=== PATIENT | female | born 1975 | race Caucasian/White ===

== ENCOUNTER → 2018-12-13 10:44 | Outpatient (CLI) | payer OTHER, SELFPAY ==
--- NOTE | 2018-12-13 | DI.US.S_ITS ---
PROCEDURE: US PELVIC COMPLETE INDICATIONS: PELVIC PAIN TECHNIQUE: Real-time scanning was performed of the pelvic organs, with image documentation. Additional endovaginal scanning was necessary due to incomplete visualization of the adnexal and endometrial structures by transabdominal scanning. COMPARISON: None. FINDINGS: Transabdominal scanning: Limited scanning through the kidneys shows no hydronephrosis. No pathologic free abdominal or pelvic fluid. Endovaginal scanning: Uterus: Uterus is normal in size at 8.5 x 4.4 x 3.3 cm. The endometrium measures 4.8 mm in combined thickness. Intrauterine device in expected position. Small endometrial notch echogenic foci present likely related to retained blood products. Ovaries: Supple, unilocular right ovarian cyst measuring 2.9 x 2.8 x 2.5 cm. Small regressing physiologic left ovarian cyst measuring roughly 1.0 cm. IMPRESSION: 1. Intrauterine device in expected position. 2. Simple right ovarian cyst and regressing left physiologic cyst measuring roughly 1.0 cm. 3. No source for pelvic pain identified. Dictated by: Simone Queen [facility] Interpreted: Tylor Tesfaye MD on 12/13/2018 at 13:00 Approved by: Tylor Tesfaye M.D. on 12/13/2018 at 17:01
--- NOTE | 2018-12-13 | DI.MG.S_ITS ---
BILATERAL DIGITAL SCREENING MAMMOGRAM 3D/2D WITH CAD: 12/13/2018 CLINICAL: Routine screening. Comparison is made to exam dated: 01/12/2015 [facility]. There are scattered fibroglandular elements in both breasts. Current study was also evaluated with a Computer Aided Detection (CAD) system. No significant masses, calcifications, or other findings are seen in either breast. There has been no significant interval change. IMPRESSION: NEGATIVE There is no mammographic evidence of malignancy. A 1 year screening mammogram is recommended. This exam was interpreted at Station ID: [id number]. NOTE: For mammograms, a report in lay terms will be sent to the patient. Approximately 15% of breast malignancies will not be visualized mammographically. In the management of a palpable breast mass, a negative mammogram must not discourage biopsy of a clinically suspicious lesion. Electronically Signed By: Hu zamora/andreina:12/13/2018 18:30:16 letter sent: Normal Exam ACR BI-RADS Category 1: Negative 3341F
== END ==
PROVIDERS: PCP Family Medicine; Visit Provider Family Medicine
DX: Z12.31 Encounter for screening mammogram for malignant neoplasm of breast (principal); R10.2 Pelvic and perineal pain; N83.291 Other ovarian cyst, right side; N83.292 Other ovarian cyst, left side; Z97.5 Presence of (intrauterine) contraceptive device
CPT/HCPCS: 76830; 76856; 77063; 77067

== ENCOUNTER → 2018-12-18 11:45 | Outpatient (CLI) | payer OTHER, SELFPAY ==
--- NOTE | 2018-12-18 | DI.RAD.S_ITS ---
PROCEDURE: XR KNEE RT 3V INDICATIONS: R KNEE PAIN TECHNIQUE: 3 views of the knee were acquired. COMPARISON: None. FINDINGS: Bones: No fractures or dislocations. No suspicious bony lesions. Scattered degenerative subchondral sclerosis and spurring. Minimal narrowing of the medial joint space Soft tissues: No joint effusion. No suspicious soft tissue calcifications. IMPRESSION: Mild right knee joint degeneration. Dictated by: Henrry Nuñez M.D. on 12/18/2018 at 12:54 Approved by: Henrry Nuñez M.D. on 12/18/2018 at 12:56
== END ==
PROVIDERS: PCP Student in an Organized Health Care Education/Training Program; Visit Provider Student in an Organized Health Care Education/Training Program
DX: M25.561 Pain in right knee (principal); M17.11 Unilateral primary osteoarthritis, right knee
CPT/HCPCS: 73562

== ENCOUNTER → 2020-03-07 10:41 | Outpatient (CLI) | payer OTHER, SELFPAY ==
--- NOTE | 2020-03-07 | DI.MG.S_ITS ---
BILATERAL DIGITAL SCREENING MAMMOGRAM 3D/2D WITH CAD: 03/07/2020 CLINICAL: Routine screening. Comparison is made to exams dated: 12/13/2018 mammogram and 01/12/2015 mammogram - [facility]. There are scattered fibroglandular elements in both breasts. Current study was also evaluated with a Computer Aided Detection (CAD) system. No significant masses, calcifications, or other findings are seen in either breast. There has been no significant interval change. IMPRESSION: NEGATIVE There is no mammographic evidence of malignancy. A 1 year screening mammogram is recommended. This exam was interpreted at Station ID: [id number]. NOTE: For mammograms, a report in lay terms will be sent to the patient. Approximately 15% of breast malignancies will not be visualized mammographically. In the management of a palpable breast mass, a negative mammogram must not discourage biopsy of a clinically suspicious lesion. Electronically Signed By: Aditya meredith/andreina:03/09/2020 07:51:02 letter sent: Normal Exam ACR BI-RADS Category 1: Negative 3341F
== END ==
PROVIDERS: PCP Student in an Organized Health Care Education/Training Program; Referring Provider Student in an Organized Health Care Education/Training Program; Visit Provider Student in an Organized Health Care Education/Training Program
DX: Z12.31 Encounter for screening mammogram for malignant neoplasm of breast (principal)
CPT/HCPCS: 77063; 77067

== ENCOUNTER → 2021-03-17 10:41 | Outpatient (CLI) | payer OTHER, SELFPAY ==
--- NOTE | 2021-03-17 | DI.MG.S_ITS ---
BILATERAL DIGITAL SCREENING MAMMOGRAM 3D/2D WITH CAD: 03/17/2021 CLINICAL: Routine screening. Comparison is made to exams dated: 03/07/2020 mammogram, 12/13/2018 mammogram, and 01/12/2015 mammogram - [facility]. There are scattered fibroglandular elements in both breasts. Current study was also evaluated with a Computer Aided Detection (CAD) system. No significant masses, calcifications, or other findings are seen in either breast. There has been no significant interval change. IMPRESSION: NEGATIVE There is no mammographic evidence of malignancy. A 1 year screening mammogram is recommended. This exam was interpreted at Station ID: [id number]. NOTE: For mammograms, a report in lay terms will be sent to the patient. Approximately 15% of breast malignancies will not be visualized mammographically. In the management of a palpable breast mass, a negative mammogram must not discourage biopsy of a clinically suspicious lesion. Electronically Signed By: Jareth Juan acr/andreina:03/17/2021 11:52:20 letter sent: Normal Exam ACR BI-RADS Category 1: Negative 3341F
== END ==
PROVIDERS: PCP Student in an Organized Health Care Education/Training Program; Referring Provider Student in an Organized Health Care Education/Training Program; Visit Provider Student in an Organized Health Care Education/Training Program
DX: Z12.31 Encounter for screening mammogram for malignant neoplasm of breast (principal)
CPT/HCPCS: 77063; 77067

== ENCOUNTER → 2021-04-15 12:14 | Outpatient (CLI) | payer OTHER, SELFPAY ==
--- NOTE | 2021-04-15 12:17 | DI.RAD.S_ITS ---
PROCEDURE: XR SHOULDER RT MIN 2V INDICATIONS: Right arm pain TECHNIQUE: 3 views of the shoulder were acquired. COMPARISON: None. FINDINGS: Bones: No fractures or dislocations. No suspicious bony lesions. Visualized ribs appear intact. Soft tissues: No suspicious soft tissue calcifications. IMPRESSION: Unremarkable right shoulder radiographs Approved by: Garcia Muñoz M.D. on 04/15/2021 at 14:45
--- NOTE | 2021-04-15 12:17 | DI.RAD.S_ITS ---
PROCEDURE: XR CLAVICLE RT INDICATIONS: Right arm pain TECHNIQUE: 2 views of the clavicle were acquired. COMPARISON: None. FINDINGS: Bones: No fractures or dislocations. No suspicious bony lesions. Soft tissues: No suspicious soft tissue calcifications. IMPRESSION: Unremarkable right clavicular radiographs Approved by: Garcia Muñoz M.D. on 04/15/2021 at 14:44
--- NOTE | 2021-04-15 12:17 | DI.RAD.S_ITS ---
PROCEDURE: XR CERVICAL SPINE 2V OR 3V INDICATIONS: Right arm pain TECHNIQUE: 3 view(s) of the cervical spine were acquired. COMPARISON: None. FINDINGS: Bones: No fractures or dislocations to the T1 level. The lateral masses of C1 appear intact on the odontoid view. No suspicious bony lesions. Reversal normal cervical lordosis present. Soft tissues: No prevertebral soft tissue swelling. IMPRESSION: Reversal of the normal cervical lordosis may related to patient positioning or muscle spasm. Approved by: Garcia Muñoz M.D. on 04/15/2021 at 14:43
== END ==
PROVIDERS: PCP Student in an Organized Health Care Education/Training Program; Referring Provider Student in an Organized Health Care Education/Training Program; Visit Provider Student in an Organized Health Care Education/Training Program
DX: M79.601 Pain in right arm
CPT/HCPCS: 72040; 73000; 73030

== ENCOUNTER → 2021-05-20 09:38 | Outpatient (CLI) | payer OTHER, SELFPAY ==
--- NOTE | 2021-05-20 09:40 | DI.US.S_ITS ---
PROCEDURE: US PELVIC COMPLETE INDICATIONS: PAIN TECHNIQUE: Real-time scanning was performed of the pelvic organs, with image documentation. Additional endovaginal scanning was necessary due to incomplete visualization of the adnexal and endometrial structures by transabdominal scanning. COMPARISON: [facility], , US PELVIC COMPLETE, 12/13/2018, 11:44. FINDINGS: Uterus: Uterus is anteverted and normal in size at 7.5 x 3.7 x 4.4 cm. The myometrium is homogeneous. The endometrium measures 5 mm combined thickness. The IUD is seen at its expected location. Ovaries: The right ovary measures 2.6 x 1.7 x 1.6 cm. The left ovary measures 3 x 1.2 x 2.3 cm. The ovaries have a normal sonographic appearance. No adnexal masses are seen. Other: No pathologic free abdominal or pelvic fluid. IMPRESSION: Unremarkable pelvic ultrasound, with a normally placed IUD. We strive to produce accurate, complete, and clear reports of imaging services. To assist us in improving patient care, this report was composed using standard report templates and voice recognition software. Therefore, it may contain abnormal punctuation, insertions and/or omissions. Occasional wrong-word or sound-alike substitutions may occur. Though we review the report and make efforts to correct it, we do recommend that the report be read carefully in proper context to recognize any text inaccuracies. Dictated by: Bruno Zheng M.D. on 05/20/2021 at 10:49 Approved by: Bruno Zheng M.D. on 05/20/2021 at 10:50
== END ==
PROVIDERS: PCP Student in an Organized Health Care Education/Training Program; Referring Provider Student in an Organized Health Care Education/Training Program; Visit Provider Student in an Organized Health Care Education/Training Program
DX: R10.30 Lower abdominal pain, unspecified (principal); Z97.5 Presence of (intrauterine) contraceptive device
CPT/HCPCS: 76830; 76856

== ENCOUNTER → 2021-08-05 09:41 | Outpatient (CLI) | payer OTHER, SELFPAY ==
--- NOTE | 2021-08-05 09:41 | DI.RAD.S_ITS ---
PROCEDURE: XR FOOT RT MIN 3V INDICATIONS: right foot great toe swelling pain TECHNIQUE: 3 views of the foot were acquired. COMPARISON: None. FINDINGS: Bones: No fractures or dislocations. No suspicious bony lesions. Mild hallux valgus deformity. No osseous erosive changes or periosteal reaction. Soft tissues: No tibiotalar joint effusion. Achilles tendon appears normal. No soft tissue gas. Soft tissue swelling noted adjacent to the 1st MTP joint. IMPRESSION: 1. No jose m evidence of osteomyelitis. Plain film radiographs can be insensitive to osteomyelitis during the initial 15 days of the disease process. If there is clinical concern for osteomyelitis, then three-phase nuclear medicine bone scan or MRI should be considered for further evaluation. 2. Soft tissue swelling adjacent to the 1st MTP joint. Finding is nonspecific but differential includes infection, trauma or inflammatory arthritis. Dictated by: Holly Morrow MD, PhD on 08/05/2021 at 15:01 Approved by: Holly Morrow MD, PhD on 08/05/2021 at 15:02
== END ==
PROVIDERS: PCP Student in an Organized Health Care Education/Training Program; Referring Provider Nurse Practitioner Family; Visit Provider Nurse Practitioner Family
DX: M79.671 Pain in right foot (principal); M79.89 Other specified soft tissue disorders
CPT/HCPCS: 73630

== ENCOUNTER → 2021-12-29 10:57 | Outpatient (CLI) | payer OTHER, SELFPAY ==
[2021-12-29 13:34] LABS: COVID19 -Nasal RAPID Negative (Negative)
== END ==
PROVIDERS: PCP Student in an Organized Health Care Education/Training Program; Visit Provider Surgery
DX: Z20.822 Contact with and (suspected) exposure to COVID-19 (principal); Z01.812 Encounter for preprocedural laboratory examination
CPT/HCPCS: 87635; C9803

== ENCOUNTER 2021-12-30 11:24 | Day surgery (SDC) | payer OTHER, SELFPAY ==
[2021-12-30] VITALS (8 sets, daily range): BP systolic 86–139; BP diastolic 43–84; PULSE 60–74; RESP 15–20; TEMP 36–36.2; O2SAT 96–100; BMI 37.1
--- NOTE | 2021-12-30 | PATH_ITS ---
[facility] Accession Number: [id number] . 01 Material submitted: . colon - SIGMOID COLON POLYP . 01 Diagnosis: Sigmoid Colon, Polyp, Biopsy: Hyperplastic polyp. JN 12/31/2021 1220 Local . 01 Electronically signed: . Lorie Almazan MD, Pathologist NPI- [id number] . 01 Gross description: . SIGMOID COLON POLYP: Received in formalin is 1 fragment(s) of pritchard, soft tissue measuring 0.4 x 0.3 x 0.2 cm submitted entirely in 1 cassette(s) /QBJ 12/31/2021 0254 Local . 01 Pathologist provided ICD-10: K63.5 . 01 CPT . 517001 Specimen Comment: A courtesy copy of this report has been sent to [phone] Performed at: 01 [facility] [address] [place] [address] [id number] MD Justice Vega MD Phone: [phone]
[2021-12-30] MEDS: LACTATED RINGERS 1,000 ML 150 ML IV (11:59)
--- NOTE | 2021-12-30 12:20 | PM.HP.1 ---
History of Present Illness History of Present Illness Date Patient Seen: 12/30/21 Time Patient Seen: 12:20 Chief complaint: SDC Narrative: Sam is a 46-year-old woman who is here for a colonoscopy for colon cancer screening. She has no known family history of colon cancer but she is adopted so she does not know much about her extended family. Patient History Medical History (Updated 12/30/21 @ 12:21 by Fausto Arreola MD) Abnormal Pap smear of cervix (~1991) Arm pain (~2018) Human papilloma virus (~1991) Hypertension (~2012) Ovarian cyst (~2019) Precancerous lesion (~2017) Shoulder pain (~2018) Surgical History (Updated 04/14/21 @ 22:10 by Mary Jane Sheriff) Anesthesia History of lobectomy of thyroid (~1993) Family & Social History Family History (Updated 04/14/21 @ 22:11 by Mary Jane Sheriff) Father History of heart disease Social History: household members none Tobacco & Substance use: Smoking Status Former smoker alcohol intake current alcohol intake frequency holiday/special occasion Substance Use Type does not use Meds Home Medications and Allergies Home Medications Medication Instructions Recorded Confirmed Type levonorgestrel 20 mcg/24 hours (7 intrauterine 04/15/21 08/16/21 History yrs) 52 mg intrauterine device (Mirena) syringe with needle, safety 3 mL 04/15/21 08/16/21 History 22 gauge x 1 1/2 (BD Eclipse Luer-Lisa) hydrochlorothiazide 25 mg tablet 25 mg PO DAILY #90 tabs 09/09/21 Rx cyanocobalamin (vitamin B-12) 1,000 mcg IM QMONTH #1 mL 11/08/21 12/30/21 Rx 1,000 mcg/mL injection solution metoprolol succinate 50 mg 50 mg PO BID #180 tabs 12/07/21 12/30/21 Rx tablet,extended release 24 hr Allergies Allergy/AdvReac Type Severity Reaction Status Date / Time latex [LATEX] Allergy Unknown Verified 12/30/21 11:44 tetracycline [TETRACYCLINE] Allergy Unknown Verified 12/30/21 11:44 lisinopril AdvReac Mild Cough Verified 12/30/21 11:44 Exam Vital Signs (past 8 hours): - 12/30/21 11:47 Temperature 97.2 F L Pulse Rate 70 Respiratory Rate 20 Blood Pressure 139/83 Pulse Oximetry 100 Oxygen Delivery Method Room Air Oxygen Delivery Method Room Air Const General: No acute distress Resp Effort & Inspection: normal respiratory effort Assessment & Plan Assessment and plan (1) Colon cancer screening: Status: Acute Plan We reviewed the risks and benefits of colonoscopy and she would like to proceed. Time Spent With Patient Critical Care time: I spent a total of [] minutes of critical care time on this patient's care today; this time is exclusive of procedural time.
[2021-12-30] MEDS: MIDAZOLAM 5 MG/5 ML VIAL 10 MG IV (12:49)
[2021-12-30] MEDS: fentaNYL 250 MCG/5 ML INJ IV (12:49)
--- NOTE | 2021-12-30 13:09 | PM.OP.COLON ---
Operative Date/Time/Diagnoses Date of procedure: 12/30/21 Time of procedure: 13:09 Pre-op diagnosis: Colon cancer screening Post-op diagnosis: same Procedure & Clinicians Study performed: Colonoscopy Same procedure as scheduled: Yes Surgeon: Fausto Arreola Procedure Notes Procedure in detail: Surgeon: Fausto Arreola MD Procedure: The patient was brought to the endoscopy suite, placed in left lateral decubitus position. The patient was connected to monitoring devices. A time-out was performed. Sedation was administered. Once the patient was adequately sedated, a digital rectal exam was performed and was normal. The scope was then inserted and advanced to the cecum where the appendiceal orifice was identified and photographed. The scope was then slowly withdrawn over greater than 6 minutes. The mucosa was thoroughly inspected. There was 1 small polyp in the distal sigmoid colon removed with cold forceps. The scope was retroflexed in the rectum. No other abnormalities were noted in the rectum. The scope was straightened and removed. The patient was awakened and brought to recovery. Versed: 10 mg Fentanyl: 250 mcg EBL: 2 mL Findings: 1 small polyp in the distal sigmoid colon Scope withdrawal time: 10 Sedation minutes: 39 Post-procedure Recommendations: Will call with biopsy results Disposition: PACU
--- NOTE | 2021-12-30 13:46 | SUR.PHASEII ---
Pt A&Ox4, denies any distress, VSS and ready to discharge home. Discharge instructions reviewed with patient and time allowed for questions. Handoff to KEEGAN Pratt who will remove IV and transport pt to ER entrance.
== END 2021-12-30 14:00 | disposition home or self-care (01) ==
PROVIDERS: PCP Student in an Organized Health Care Education/Training Program; Referring Provider Surgery; Visit Provider Surgery
PROC: 0DJD8ZZ Inspection of Lower Intestinal Tract, Via Natural or Artificial Opening Endoscopic (ICD-10-PCS; CPT 45378; principal; 2021-12-30 12:30)
DX: Z12.11 Encounter for screening for malignant neoplasm of colon (principal); K63.5 Polyp of colon; I10 Essential (primary) hypertension; Z87.891 Personal history of nicotine dependence
CPT/HCPCS: 45380; 99152; 99153; J2250; J3010

== ENCOUNTER → 2022-06-15 11:07 | Outpatient (CLI) | payer OTHER, SELFPAY ==
[2022-06-15 12:18] LABS: BUN Creatinine Ratio 16.2 (6-22); Blood Urea Nitrogen 12 mg/dL (7-17); Calcium 9.1 mg/dL (8.4-10.2); Carbon Dioxide 30 mmol/L (22-32); Chloride 100 mmol/L (98-107); Estimated Glomerular Filt Rate > 60 mL/min (>60); Glucose 110 mg/dL (70-100); HEMOLYSIS < 15 (0-50); Potassium 4.1 mmol/L (3.4-5.1); Sodium 139 mmol/L (137-145); Uric Acid 6.5 mg/dL (2.5-6.2)
[2022-06-15 13:06] LABS: Vitamin B12 799 pg/mL (239-931)
[2022-06-16 17:29] LABS: HIV 1 & 2 Ab/Ag 4th Gen Combo NEGATIVE (NEGATIVE); Hep C Virus Ab w/Reflex Quant NEGATIVE s/c (NEGATIVE)
== END ==
PROVIDERS: PCP Student in an Organized Health Care Education/Training Program; Referring Provider Student in an Organized Health Care Education/Training Program; Visit Provider Student in an Organized Health Care Education/Training Program
DX: Z11.4 Encounter for screening for human immunodeficiency virus [HIV] (principal); I10 Essential (primary) hypertension; E53.8 Deficiency of other specified B group vitamins; Z11.59 Encounter for screening for other viral diseases; M19.079 Primary osteoarthritis, unspecified ankle and foot
CPT/HCPCS: 36415; 80048; 82607; 84550; 86803; 87389

== ENCOUNTER → 2022-07-15 08:19 | Outpatient (CLI) | payer OTHER, SELFPAY ==
--- NOTE | 2022-07-15 08:20 | DI.MG.S_ITS ---
BILATERAL DIGITAL SCREENING MAMMOGRAM 3D/2D WITH CAD: 07/15/2022 CLINICAL: Routine screening. Comparison is made to exams dated: 03/17/2021 mammogram, 03/07/2020 mammogram, and 12/13/2018 mammogram - [facility]. There are scattered areas of fibroglandular density in both breasts (category b / 25%-50% glandular tissue). Current study was also evaluated with a Computer Aided Detection (CAD) system. No significant masses, calcifications, or other findings are seen in either breast. There has been no significant interval change. IMPRESSION: NEGATIVE There is no mammographic evidence of malignancy. A 1 year screening mammogram is recommended. Based on the Tyrer Cuzick model (a risk assessment model) the patient's lifetime risk is 6.5% and her 10 year risk is 1.3%. According to the ACR, ACS, and NCCN guidelines, an annual breast MRI exam along with mammogram is recommended if the patient's lifetime risk is 20% or greater. This exam was interpreted at Station ID: [id number]. NOTE: For mammograms, a report in lay terms will be sent to the patient. Approximately 15% of breast malignancies will not be visualized mammographically. In the management of a palpable breast mass, a negative mammogram must not discourage biopsy of a clinically suspicious lesion. Electronically Signed By: Jareth hughes/andreina:07/18/2022 08:05:50 letter sent: Normal Exam ACR BI-RADS Category 1: Negative 3341F
== END ==
PROVIDERS: PCP Student in an Organized Health Care Education/Training Program; Referring Provider Student in an Organized Health Care Education/Training Program; Visit Provider Student in an Organized Health Care Education/Training Program
DX: Z12.31 Encounter for screening mammogram for malignant neoplasm of breast (principal)
CPT/HCPCS: 77063; 77067

== ENCOUNTER → 2022-07-18 10:55 | Outpatient (CLI) | payer OTHER, SELFPAY ==
[2022-07-18 11:51] LABS: Uric Acid 6.8 mg/dL (2.5-6.2)
== END ==
PROVIDERS: PCP Student in an Organized Health Care Education/Training Program; Referring Provider Student in an Organized Health Care Education/Training Program; Visit Provider Student in an Organized Health Care Education/Training Program
DX: M19.079 Primary osteoarthritis, unspecified ankle and foot (principal)
CPT/HCPCS: 36415; 84550

== ENCOUNTER → 2023-03-09 15:20 | Outpatient (CLI) | payer OTHER, SELFPAY | PROVIDERS: PCP Family Medicine; Visit Provider Family Medicine | DX: R30.0 Dysuria (principal) | CPT/HCPCS: 87086 ==

== ENCOUNTER → 2023-07-07 10:41 | Outpatient (CLI) | payer OTHER, SELFPAY ==
[2023-07-07 11:19] LABS: Add Manual Diff / Slide Review NO; Basophils Absolute Auto 0 /uL (0-100); Basophils Percent Auto 0.5 % (0-2); Eosinophils Absolute Auto 200 /uL (0-450); Eosinophils Percent Auto 2.2 % (2-4); Hematocrit 38.3 % (36-46); Hemoglobin 13.1 g/dL (12.0-16.0); Lymphocytes Absolute Auto 1700 /uL (1100-4500); Lymphocytes Percent Auto 22.7 % (25-40); Mean Corpuscular HGB Conc 34.2 % (30-36); Mean Corpuscular Hemoglobin 31.3 PG (26-34); Mean Corpuscular Volume 91.4 fL (80-100); Monocytes Absolute Auto 400 /uL (0-900); Monocytes Percent Auto 5.7 % (3-14); Neutrophils Absolute Auto 5200 /uL (1500-7000); Neutrophils Percent Auto 68.9 % (50-75); Platelet Count 226 X10^3/uL (150-400); Red Blood Cell Count 4.19 X10^6/uL (4.0-5.2); Red Cell Distribution Width 13.6 % (11.6-14.8); White Blood Cell Count 7.6 X10^3/uL (4.5-11.0)
[2023-07-07 11:30] LABS: HEMOLYSIS < 15 (0-50); Iron 96 ug/dL (37-170)
[2023-07-07 11:34] LABS: Alanine Aminotransferase 24 IU/L (<35); Albumin 4.1 g/dL (3.5-5.0); Albumin Globulin Ratio 1.5 (1.0-2.8); Alkaline Phosphatase 75 U/L (38-126); Aspartate Aminotransferase 24 IU/L (14-36); BUN Creatinine Ratio 8.6 (6-22); Bilirubin Total 0.7 mg/dL (0.2-1.3); Blood Urea Nitrogen 6 mg/dL (7-17); Calcium 9.6 mg/dL (8.4-10.2); Carbon Dioxide 29 mmol/L (22-32); Chloride 99 mmol/L (98-107); Estimated Glomerular Filt Rate > 60 mL/min (>60); Globulin 2.8 g/dL (1.7-4.1); Glucose 119 mg/dL (70-100); HEMOLYSIS < 15 (0-50); Potassium 3.8 mmol/L (3.4-5.1); Sodium 135 mmol/L (137-145); Total Protein 6.9 g/dL (6.3-8.2); Uric Acid 4.7 mg/dL (2.5-6.2)
[2023-07-07 11:41] LABS: Percent Iron Saturation 32 % (15-50); Total Iron Binding Capacity 300 ug/dL (265-497); Transferrin 255 mg/dL (206-381)
[2023-07-07 12:20] LABS: Vitamin B12 684 pg/mL (239-931)
== END ==
LOC: LAB 10:42
PROVIDERS: PCP Family Medicine; Referring Provider Family Medicine; Visit Provider Family Medicine
DX: M10.9 Gout, unspecified (principal); E53.8 Deficiency of other specified B group vitamins; I10 Essential (primary) hypertension
CPT/HCPCS: 36415; 80053; 82607; 83540; 83550; 84550; 85025

== ENCOUNTER → 2023-09-04 13:58 | Outpatient (CLI) | payer OTHER, SELFPAY ==
--- NOTE | 2023-09-04 13:58 | DI.MG.S_ITS ---
BILATERAL DIGITAL SCREENING MAMMOGRAM 3D/2D WITH CAD: 09/04/2023 CLINICAL: Routine screening. Comparison is made to exams dated: 07/15/2022 mammogram, 03/17/2021 mammogram, 12/13/2018 mammogram, and 01/12/2015 mammogram - [facility]. There are scattered areas of fibroglandular density in both breasts (category b / 25%-50% glandular tissue). Current study was also evaluated with a Computer Aided Detection (CAD) system. No significant masses, calcifications, or other findings are seen in either breast. There has been no significant interval change. IMPRESSION: NEGATIVE There is no mammographic evidence of malignancy. A 1 year screening mammogram is recommended. Based on the Tyrer Cuzick model (a risk assessment model) the patient's lifetime risk is 6.4% and her 10 year risk is 1.3%. According to the ACR, ACS, and NCCN guidelines, an annual breast MRI exam along with mammogram is recommended if the patient's lifetime risk is 20% or greater. This exam was interpreted at Station ID: [id number]. NOTE: For mammograms, a report in lay terms will be sent to the patient. Approximately 15% of breast malignancies will not be visualized mammographically. In the management of a palpable breast mass, a negative mammogram must not discourage biopsy of a clinically suspicious lesion. Electronically Signed By: Fidel leavitt/andreina:09/04/2023 16:28:54 letter sent: Normal Exam ACR BI-RADS Category 1: Negative 3341F
== END ==
LOC: MAMMO 13:58
PROVIDERS: PCP Family Medicine; Referring Provider Family Medicine; Visit Provider Family Medicine
DX: Z12.31 Encounter for screening mammogram for malignant neoplasm of breast (principal); R92.323 Mammographic fibroglandular density, bilateral breasts
CPT/HCPCS: 77063; 77067

== ENCOUNTER → 2024-05-03 13:34 | Outpatient (CLI) | payer OTHER, SELFPAY ==
[2024-05-03 14:26] LABS: Add Manual Diff / Slide Review NO; Basophils Absolute Auto 0 /uL (0-100); Basophils Percent Auto 0.3 % (0-2); Eosinophils Absolute Auto 100 /uL (0-450); Eosinophils Percent Auto 1.8 % (2-4); Hematocrit 37.8 % (36-46); Hemoglobin 13.1 g/dL (12.0-16.0); Lymphocytes Absolute Auto 1600 /uL (1100-4500); Lymphocytes Percent Auto 26.3 % (25-40); Mean Corpuscular HGB Conc 34.6 % (30-36); Mean Corpuscular Volume 92.4 fL (80-100); Monocytes Absolute Auto 300 /uL (0-900); Monocytes Percent Auto 5.8 % (3-14); Neutrophils Absolute Auto 3900 /uL (1500-7000); Neutrophils Percent Auto 65.8 % (50-75); Platelet Count 192 X10^3/uL (150-400); Red Blood Cell Count 4.09 X10^6/uL (4.0-5.2); Red Cell Distribution Width 12.9 % (11.6-14.8); White Blood Cell Count 5.9 X10^3/uL (4.5-11.0)
[2024-05-03 14:34] LABS: Hemoglobin A1C% w Est Avg Glu 5.1 % (4.0-6.0)
[2024-05-03 14:38] LABS: Alanine Aminotransferase 27 IU/L (<35); Albumin 4.3 g/dL (3.5-5.0); Albumin Globulin Ratio 1.5 (1.0-2.8); Alkaline Phosphatase 74 U/L (38-126); Aspartate Aminotransferase 29 IU/L (14-36); BUN Creatinine Ratio 8.3 (6-22); Bilirubin Total 0.8 mg/dL (0.2-1.3); Blood Urea Nitrogen 7 mg/dL (7-17); Calcium 9.2 mg/dL (8.4-10.2); Carbon Dioxide 31 mmol/L (22-32); Chloride 101 mmol/L (98-107); Cholesterol 195 mg/dL (140-199); Estimated Glomerular Filt Rate > 60 mL/min (>60); Globulin 2.8 g/dL (1.7-4.1); Glucose 114 mg/dL (70-100); HDL Cholesterol 39 mg/dL (40-60); HEMOLYSIS < 15 (0-50); Iron 102 ug/dL (37-170); LDL Cholesterol Calculated 130 mg/dL (<100); Potassium 3.8 mmol/L (3.4-5.1); Sodium 138 mmol/L (137-145); Total Protein 7.1 g/dL (6.3-8.2); Triglycerides 131 mg/dL (35-150); Uric Acid 4.8 mg/dL (2.5-6.2)
[2024-05-03 14:52] LABS: Percent Iron Saturation 33 % (15-50); Total Iron Binding Capacity 308 ug/dL (265-497); Transferrin 242 mg/dL (206-381)
[2024-05-03 15:29] LABS: Vitamin B12 788 pg/mL (239-931)
== END ==
LOC: LAB 13:35
PROVIDERS: PCP Family Medicine; Referring Provider Family Medicine; Visit Provider Family Medicine
DX: M10.9 Gout, unspecified (principal); I10 Essential (primary) hypertension; R73.03 Prediabetes; D51.8 Other vitamin B12 deficiency anemias
CPT/HCPCS: 36415; 80053; 80061; 82607; 83036; 83540; 83550; 84550; 85025

== ENCOUNTER 2024-05-31 14:20 | Emergency (ER) | payer OTHER, SELFPAY ==
--- NOTE | 2024-05-31 14:32 | DI.RAD.S_ITS ---
PROCEDURE: XR CHEST 1V INDICATIONS: chest pain TECHNIQUE: One view of the chest was acquired. COMPARISON: None. FINDINGS: Surgical changes and devices: None. Lungs and pleura: Lungs are clear. No pleural effusions or pneumothorax. Mediastinum: Mediastinal contours appear normal. Heart size is normal. Bones and chest wall: No suspicious bony lesions. Overlying soft tissues appear unremarkable. IMPRESSION: No acute cardiopulmonary abnormality is seen. Moderately reduced inspiratory volume. Dictated by: Marvin Wright M.D. on 05/31/2024 at 15:51 Approved by: Marvin Wright M.D. on 05/31/2024 at 15:51
--- NOTE | 2024-05-31 14:32 | EKG_ITS ---
[address] [address] Test Date: 2024-05-31 Pat Name: Petra Herbert Department: [facility] Room: Gender: Female [employer]ing Pressman: KEEGAN HER : 1975 Requested By: Order Number: [id number] Reading MD: Tony Grossman MD Measurements Intervals [place] Rate: 78 P: 63 IN: 162 QRS: 12 QRSD: 92 T: 60 QT: 388 QTc: 442 Interpretive Statements Normal sinus rhythm Electronically Signed On 06-01-2024 16:16:46 PST by Tony Grossman MD
[2024-05-31 14:33] VITALS: BP 123/88; PULSE 81; RESP 16; TEMP 36.7; O2SAT 98; BMI 38.7
--- NOTE | 2024-05-31 14:54 | ED.CHESTPAIN ---
HPI - Chest Pain General Chief Complaint: Chest Pain Stated Complaint: Might be having a Heart attack Time Seen by Provider: 05/31/24 14:43 Source: patient Mode of arrival: Family Vehicle Limitations: no limitations Limitations: no limitations History of Present Illness HPI narrative: 48-year-old female history of hypertension, gout, partial thyroidectomy who presents with complaint of left-sided chest discomfort. Patient states it is kind of on the left side of her chest feels like it is sort of wraps around the back of her heart. She states little bit up towards her neck. Denies any exacerbating or alleviating factors. Patient states no fevers. She was has a little bit of cough today little bit of nasal congestion recently. She has had some mild nausea but no vomiting. No swelling of extremities. No lightheaded or passing out. Patient states movement does not seem to worsen it. She does little bit of numbness down her arm does not describe pain no swelling. No difficulty with movement. She has not appreciate any skin changes. Denies any shortness of breath. Home medications include metoprolol and hydrochlorothiazide as well as allopurinol. She states no aspirin or other anticoagulants. No statins. Has a history of partial thyroidectomy. Allergic to tetracycline. No tobacco, no regular alcohol or recreational drugs. States her biological father of a heart attack at age 65, has several half siblings that she states are healthy. Did have travel by airplane to [place] in the past week. Related Data Home Medications Medication Instructions Recorded Confirmed levonorgestrel 21 mcg/24 hr (up to intrauterine 04/15/21 05/13/24 8 years) 52 mg intrauterine device (Mirena) Previous Rx's Medication Instructions Recorded syringe with needle, safety 3 mL #300 ea 02/03/22 22 gauge x 1 1/2 (BD Eclipse Luer-Lisa) indomethacin 25 mg capsule 25 mg PO TID #30 caps 08/19/22 colchicine 0.6 mg tablet 0.6 mg PO DAILY #6 tabs 06/05/23 allopurinol 300 mg tablet 300 mg PO DAILY #90 tabs 07/03/23 metoprolol succinate 50 mg See Rx Instructions .Route 01/01/24 tablet,extended release 24 hr .COMPLEX #180 tabs cyanocobalamin (vitamin B-12) 1,000 mcg IM QMONTH #1 mL 02/06/24 1,000 mcg/mL injection solution hydrochlorothiazide 25 mg tablet 25 mg PO DAILY #90 tabs 05/13/24 semaglutide (weight loss) 0.25 0.25 mg (0.5 mL) SUBCUT QWEEK #2 mL 05/13/24 mg/0.5 mL subcutaneous pen injector (Wegovy) semaglutide (weight loss) 0.5 0.5 mg (0.5 mL) SUBCUT QWEEK #2 mL 05/13/24 mg/0.5 mL subcutaneous pen injector (Wegovy) Allergies Allergy/AdvReac Type Severity Reaction Status Date / Time latex [LATEX] Allergy Unknown Verified 05/13/24 09:10 tetracycline [TETRACYCLINE] Allergy Unknown Verified 05/13/24 09:10 lisinopril AdvReac Mild Cough Verified 05/13/24 09:10 Review of Systems Review of Systems ROS Unobtainable: All systems reviewed & are unremarkable except as noted in HPI and below Patient History Medical History Prediabetes Obesity Anemia Preventative health care Low back strain Menorrhagia, premenopausal Morbid obesity Moderate mixed hyperlipidemia not requiring statin therapy Ovarian cyst (~2019) Abnormal Pap smear of cervix (~1991) Hypertension (~2012) Surgical History Anesthesia History of lobectomy of thyroid (~1993) Family History Father History of heart disease Social History household members: none Smoking Status: Former smoker alcohol intake: current Smoking Status: Former smoker alcohol intake frequency: holidays/special occasions only Exam Narrative Exam Narrative: GENERAL: Alert and oriented x three, mild distress. No diaphoresis. HEENT: Head normocephalic, atraumatic, EOMI, pupils reactive, face symmetric, moist mucous membranes NECK: Supple, full range of motion CARDIOVASCULAR: Regular rate and rhythm without murmurs, rubs or gallops. No JVD. No edema bilateral lower extremities. RESPIRATORY: Breath sounds equal bilaterally, no wheezes rales or rhonchi. No tachypnea, no accessory muscle use, normal speech. ABDOMEN: Soft, nontender. Normoactive bowel sounds all 4 quadrants. No guarding or rebound, rigidity, no mass : No CVA tenderness EXTREMITIES: Normal range of motion. Neurovascularly intact NEUROLOGICAL: Cranial nerves II through XII grossly intact. Moving all extremities SKIN: Warm, dry, no petechiae, no rashes or lesions. Initial Vital Signs Initial Vital Signs: Vital Signs Temperature 98.0 F 05/31/24 14:33 Pulse Rate 81 05/31/24 14:33 Respiratory Rate 16 05/31/24 14:33 Blood Pressure 123/88 05/31/24 14:33 Pulse Oximetry 98 05/31/24 14:33 Oxygen Delivery Method Room Air 05/31/24 14:33 Scores HEART Score Heart Score history: Moderately Suspicious Heart Score EKG: Normal Heart Score Age: 45-64 years old Heart Score risk factors: 1-2 risk factors Heart Score troponin: < or = to normal limit Heart Score Total: 3 Course Orders Ordered: ED Orders 05/31/24 14:32 XR chest 1V Stat EKG-12 Lead Stat 05/31/24 15:00 Complete Blood Count AUTO DIFF Stat Comprehensive Metabolic Panel Stat D Dimer Stat Lipase Stat Magnesium Stat NT-proBNP (BNP-Adult 18+) Stat PTT Partial Thromboplastin Rad Stat Prothrombin Time INR Stat Troponin & CK Cardiac Panel Stat 05/31/24 16:38 Covid-19 + FLU A/B + RSV - PCR Stat 05/31/24 16:58 EKG-12 Lead Stat 05/31/24 17:02 Troponin I Stat Discontinued Medications Aspirin (Aspirin 81 Mg Chew Tab) 324 mg PO NOW ONE Stop: 05/31/24 14:33 Last Admin: 05/31/24 16:34 Dose: 324 mg Documented By: KERRY Vital Signs Vital signs: Vital Signs - 8 hr 05/31/24 14:33 05/31/24 16:32 05/31/24 16:33 Temperature 98.0 F Pulse Rate 81 61 67 Respiratory Rate 16 22 21 Blood Pressure 123/88 Pulse Oximetry 98 99 98 Oxygen Delivery Method Room Air 05/31/24 16:33 05/31/24 17:00 05/31/24 17:00 Temperature Pulse Rate 66 Respiratory Rate 16 Blood Pressure 137/77 141/75 H Pulse Oximetry 99 Oxygen Delivery Method 05/31/24 17:30 05/31/24 17:30 05/31/24 17:56 Temperature Pulse Rate 68 Respiratory Rate 16 19 Blood Pressure 123/69 Pulse Oximetry 98 Oxygen Delivery Method MDM - Chest Pain Lab Data 05/31/24 15:00 05/31/24 15:00 Labs: Lab Results 05/31/24 05/31/24 05/31/24 Range/Units 15:00 16:38 17:02 WBC 6.9 (4.5-11.0) X10^3/uL RBC 4.19 (4.0-5.2) X10^6/uL Hgb 13.3 (12.0-16.0) g/dL Hct 38.9 (36-46) % MCV 92.7 (80-100) fL MCH 31.6 (26-34) PG MCHC 34.1 (30-36) % RDW 13.4 (11.6-14.8) % Plt Count 203 (150-400) X10^3/uL Neut % (Auto) 73.2 (50-75) % Lymph % (Auto) 18.9 L (25-40) % [place] % (Auto) 5.1 (3-14) % Eos % (Auto) 2.3 (2-4) % Baso % (Auto) 0.5 (0-2) % Neut # (Auto) 5000 (9727-8399) /uL Lymph # (Auto) 1300 (1659-6486) /uL [place] # (Auto) 300 (0-900) /uL Eos # (Auto) 200 (0-450) /uL Baso # (Auto) 0 (0-100) /uL PT 10.5 (9.4-12.5) SECONDS INR 0.9 (0.9-1.3) APTT 37 H (25.1-36.5) SECONDS D-Dimer 473 (<500) ng/ml Sodium 138 (137-145) mmol/L Potassium 3.6 (3.4-5.1) mmol/L Chloride 103 (98-107) mmol/L Carbon Dioxide 28 (22-32) mmol/L BUN 11 (7-17) mg/dL Creatinine 0.79 (0.52-1.04) mg/dL Estimated GFR > 60 (>60) mL/min BUN/Creatinine Ratio 13.9 (6-22) Glucose 138 H (70-100) mg/dL Calcium 9.3 (8.4-10.2) mg/dL Magnesium 1.7 (1.6-2.3) mg/dL Total Bilirubin 0.5 (0.2-1.3) mg/dL AST 25 (14-36) IU/L ALT 21 (<35) IU/L Alkaline Phosphatase 72 (38-126) U/L Total Creatine Kinase 76 (30-135) U/L Troponin I < 0.012 < 0.012 (0.01-0.034) ng/mL NT-Pro-B Natriuret Pep 89 (<125) pg/mL Total Protein 6.9 (6.3-8.2) g/dL Albumin 4.2 (3.5-5.0) g/dL Globulin 2.7 (1.7-4.1) g/dL Albumin/Globulin Ratio 1.6 (1.0-2.8) Lipase 192 (23-300) U/L SARS-CoV-2 (PCR) Negative (Negative) Influenza A (RT-PCR) Flu a negative (NEGATIVE) Influenza B (RT-PCR) Flu b negative (NEGATIVE) RSV (PCR) Negative (Negative) Imaging Data Chest x-ray: Radiologist's Impression: Close Chest X-Ray (Signed) Marvin Wright - 05/31/24 Mammogram Screening (Signed) Fidel Farley - 09/04/23 Mammogram Screening (Signed) Jareth Juan - 07/15/22 Telemetry Strips 12/30/21 Foot X-Ray (Signed) Holly Morrow - 08/05/21 Pelvis Ultrasound (Signed) Bruno Zheng - 05/20/21 Shoulder X-Ray (Signed) Muñoz,Garcia - 04/15/21 Clavicle X-Ray (Signed) Muñoz,Garcia - 04/15/21 Cervical Spine X-Ray (Signed) Muñoz,Garcia - 04/15/21 Mammogram Screening (Signed) Jareth Juan - 03/17/21 Mammogram Screening (Signed) Aditya Ortega - 03/07/20 Knee X-Ray (Signed) Henrry Nuñez - 12/18/18 Pelvis Ultrasound (Signed) Tylor Tesfaye - 12/13/18 Mammogram Screening (Signed) Hu Pereyra - 12/13/18 Launch?[address] [address] XRay Report Signed Patient: Petra Herbert MR#: [id number] : 1975 Acct:[id number] Age/Sex: 48 / F Date of Service: 05/31/24 Loc: ED Accession Number: [id number] Procedure: XR chest 1V Ordering Provider: Zandra Ham D.O. PROCEDURE: XR CHEST 1V INDICATIONS: chest pain TECHNIQUE: One view of the chest was acquired. COMPARISON: None. FINDINGS: Surgical changes and devices: None. Lungs and pleura: Lungs are clear. No pleural effusions or pneumothorax. Mediastinum: Mediastinal contours appear normal. Heart size is normal. Bones and chest wall: No suspicious bony lesions. Overlying soft tissues appear unremarkable. IMPRESSION: No acute cardiopulmonary abnormality is seen. Moderately reduced inspiratory volume. Dictated by: Marvin Wright M.D. on 05/31/2024 at 15:51 Approved by: Marvin Wright M.D. on 05/31/2024 at 15:51 ECG Data Attestation: I personally reviewed and interpreted this ECG as follows: Prior ECG tracings: available for review Interpretation: Sinus rhythm rate of 78 FL 162 QRS of 92 QTC 442, no acute ST elevation or depression noted. No priors for comparison. EKG 2. Sinus bradycardia rate of 58 FL 156 QRS of 90 QTC 435, no acute ST elevation or depression. Nonspecific. MDM Narrative Medical decision making narrative: 48-year-old female complaint of left-sided chest discomfort does note a little bit into her neck and a little bit down her arm but also little numbness tingling since yesterday. No acute exacerbating or alleviating factors. Does have a history of hypertension, states her father at 65 from an [place]. also notes that she recently flew to [place] and back in the past week. She also notes a little bit of mild nasal congestion and mild cough starting today. Initial vitals are overall appropriate Labs white count 6.9 hemoglobin of 13 platelets of 203, INR 0.9 D-dimer is negative at 473, electrolytes are appropriate BUN creatinine 0.79 glucose is 138 LFTs are negative troponins less than 0.012 with a BNP of 89 lipase of 192. Repeat troponins less than 0.012 EKG shows sinus rhythm no priors for comparison Chest x-ray is negative for acute change COVID/influenza/RSV is negative. Patient has had greater than 12 hours of symptoms with negative troponins x2, no acute or dynamic EKG changes, chest x-ray shows no acute changes to the lungs patient's vitals are overall appropriate. Negative for COVID flu RSV. Patient's have any rash or skin changes appreciated does not have little bit of discomfort in her arm and tingling so may have potential for radiculopathy but describes discomfort more is on the lateral chest wall. Discussed with patient she had some travel recently but dimer is negative with no other risk factors appreciated. Patient is felt appropriate for discharge home. Discharge Plan Departure Patient Disposition: Home Clinical Impression: Chest pain Instructions: DI for Chest Pain Activity Restrictions/Additional Instructions: Please follow up for recheck. Please return for new or worsening symptoms, new chest pain or shortness of breath, fevers, persistent vomiting, new swelling in your extremities, passing out, new rash or skin changes or other new or concerning changes. Prescriptions: No Action (DME) BD Eclipse Luer-Lisa 3 mL 22 gauge x 1 1/2 syringe See Rx Instructions .Route Qty: 300 2RF Rx Instructions: to inject vitamin b12 once a month indomethacin 25 mg capsule 25 mg PO TID Qty: 30 2RF Rx Instructions: administer with food or milk, as needed gout colchicine 0.6 mg tablet 0.6 mg PO DAILY Qty: 6 5RF Rx Instructions: 2 tabs with first sign of flare, 1 tab one hour later. No more than 3 tabs in 24 hrs allopurinol 300 mg tablet 300 mg PO DAILY Qty: 90 3RF metoprolol succinate 50 mg tablet extended release 24 hr See Rx Instructions .ROUTE .COMPLEX Qty: 180 1RF Dose Instruction: TAKE ONE TABLET BY MOUTH TWICE DAILY. NEED APPOINTMENT WITH PCP FOR MORE REFILLS. Rx Instructions: TAKE ONE TABLET BY MOUTH TWICE DAILY. cyanocobalamin (vitamin B-12) 1,000 mcg/mL solution 1,000 mcg IM QMONTH Qty: 1 5RF Wegovy 0.25 mg/0.5 mL pen injector 0.25 mg SUBCUT QWEEK Qty: 2 1RF Rx Instructions: administer weeks 1 through 4 of therapy Wegovy 0.5 mg/0.5 mL pen injector 0.5 mg SUBCUT QWEEK Qty: 2 0RF Rx Instructions: administer weeks 5 through 8 of therapy hydrochlorothiazide 25 mg tablet 25 mg PO DAILY Qty: 90 3RF Mirena 20 mcg/24 hours (7 yrs) 52 mg intrauterine device intrauterine Referrals: Victorino Lopez DO [Primary Care Provider] - Stand Alone Forms: Patient Portal/API/Survey
[2024-05-31 15:10] LABS: Add Manual Diff / Slide Review NO; Basophils Absolute Auto 0 /uL (0-100); Basophils Percent Auto 0.5 % (0-2); Eosinophils Absolute Auto 200 /uL (0-450); Eosinophils Percent Auto 2.3 % (2-4); Hematocrit 38.9 % (36-46); Hemoglobin 13.3 g/dL (12.0-16.0); Lymphocytes Absolute Auto 1300 /uL (1100-4500); Lymphocytes Percent Auto 18.9 % (25-40); Mean Corpuscular HGB Conc 34.1 % (30-36); Mean Corpuscular Hemoglobin 31.6 PG (26-34); Mean Corpuscular Volume 92.7 fL (80-100); Monocytes Absolute Auto 300 /uL (0-900); Monocytes Percent Auto 5.1 % (3-14); Neutrophils Absolute Auto 5000 /uL (1500-7000); Neutrophils Percent Auto 73.2 % (50-75); Platelet Count 203 X10^3/uL (150-400); Red Blood Cell Count 4.19 X10^6/uL (4.0-5.2); Red Cell Distribution Width 13.4 % (11.6-14.8); White Blood Cell Count 6.9 X10^3/uL (4.5-11.0)
[2024-05-31 15:18] LABS: INR 0.9 (0.9-1.3); Prothrombin Time 10.5 SECONDS (9.4-12.5)
[2024-05-31 15:21] LABS: PTT Partial Thromboplastin Tim 37 SECONDS (25.1-36.5)
[2024-05-31 15:23] LABS: Alanine Aminotransferase 21 IU/L (<35); Albumin 4.2 g/dL (3.5-5.0); Albumin Globulin Ratio 1.6 (1.0-2.8); Alkaline Phosphatase 72 U/L (38-126); Aspartate Aminotransferase 25 IU/L (14-36); BUN Creatinine Ratio 13.9 (6-22); Bilirubin Total 0.5 mg/dL (0.2-1.3); Blood Urea Nitrogen 11 mg/dL (7-17); Calcium 9.3 mg/dL (8.4-10.2); Carbon Dioxide 28 mmol/L (22-32); Chloride 103 mmol/L (98-107); Creatine Kinase 76 U/L (30-135); Estimated Glomerular Filt Rate > 60 mL/min (>60); Globulin 2.7 g/dL (1.7-4.1); Glucose 138 mg/dL (70-100); HEMOLYSIS 23 (0-50); Lipase 192 U/L (23-300); Magnesium 1.7 mg/dL (1.6-2.3); Potassium 3.6 mmol/L (3.4-5.1); Sodium 138 mmol/L (137-145); Total Protein 6.9 g/dL (6.3-8.2)
[2024-05-31 15:29] LABS: D Dimer 473 ng/ml (<500)
[2024-05-31 15:35] LABS: NT-proBNP (BNP-Adult 18+) 89 pg/mL (<125); Troponin I < 0.012 ng/mL (0.01-0.034)
[2024-05-31 16:32] VITALS: PULSE 61; RESP 22; O2SAT 99
[2024-05-31 16:33] VITALS: BP 137/77; PULSE 67; RESP 21; O2SAT 98
[2024-05-31] MEDS: ASPIRIN 81 MG CHEW TAB 324 MG PO (16:34)
--- NOTE | 2024-05-31 16:42 | PC.NURSE ---
No history of blood clots. Pt states she did not wear compression socks when she traveled like she usually does. Pt states when she would go over the pass her legs would swell; prompting her to wear compression socks.
[2024-05-31 17:00] VITALS: BP 141/75; PULSE 66; RESP 16; O2SAT 99
--- NOTE | 2024-05-31 17:14 | EKG_ITS ---
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
[2024-05-31 17:20] LABS: Influenza A - CEPHEID Flu A NEGATIVE (NEGATIVE); Influenza B - CEPHEID Flu B NEGATIVE (NEGATIVE); Respiratory Syncytial Virus Negative (Negative)
[2024-05-31 17:27] LABS: COVID-19 CEPHEID 4-PLEX PCR Negative (Negative)
[2024-05-31 17:30] VITALS: BP 123/69; PULSE 68; RESP 16; O2SAT 98
[2024-05-31 17:34] LABS: Troponin I < 0.012 ng/mL (0.01-0.034)
[2024-05-31 17:56] VITALS: RESP 19
== END 2024-05-31 17:57 | disposition home or self-care (01) ==
PROVIDERS: Emergency Provider Emergency Medicine; PCP Family Medicine
DX: R07.9 Chest pain, unspecified (principal); R05.9 Cough, unspecified; R09.81 Nasal congestion; Z86.79 Personal history of other diseases of the circulatory system; Z82.49 Family history of ischemic heart disease and other diseases of the circulatory system
CPT/HCPCS: 0241U; 36415; 71045; 80053; 82550; 83690; 83735; 83880; 84484; 85025; 85379; 85610; 85730; 93005; 99284

== ENCOUNTER → 2025-05-02 14:49 | Outpatient (CLI) | payer OTHER, SELFPAY ==
[2025-05-02 15:26] LABS: Add Manual Diff / Slide Review NO; Hematocrit 39.3 % (36-46); Hemoglobin 13.6 g/dL (12.0-16.0); Lymphocytes Absolute Auto 1600 /uL (1100-4500); Mean Corpuscular HGB Conc 34.6 % (30-36); Mean Corpuscular Hemoglobin 31.6 PG (26-34); Mean Corpuscular Volume 91.3 fL (80-100); Platelet Count 194 X10^3/uL (150-400)
[2025-05-02 15:36] LABS: Hemoglobin A1C% w Est Avg Glu 4.6 % (4.0-6.0)
[2025-05-02 15:46] LABS: Iron 78 ug/dL (37-170)
[2025-05-02 15:48] LABS: Alanine Aminotransferase 23 IU/L (<35); Albumin 4.2 g/dL (3.5-5.0); Albumin Globulin Ratio 1.8 (1.0-2.8); Alkaline Phosphatase 73 U/L (38-126); Blood Urea Nitrogen 9 mg/dL (7-17); Calcium 9.5 mg/dL (8.4-10.2); Carbon Dioxide 29 mmol/L (22-32); Chloride 102 mmol/L (98-107); Estimated Glomerular Filt Rate > 60 mL/min (>60); Globulin 2.4 g/dL (1.7-4.1); Glucose 101 mg/dL (70-99); HEMOLYSIS < 15 (0-50); Potassium 3.8 mmol/L (3.4-5.1); Sodium 139 mmol/L (137-145); Total Protein 6.6 g/dL (6.3-8.2); Uric Acid 3.7 mg/dL (2.5-6.2)
[2025-05-02 16:18] LABS: TSH w/ Reflex to FT4 1.50 uIU/mL (0.47-4.68)
[2025-05-02 16:36] LABS: Vitamin B12 559 pg/mL (239-931)
== END ==
PROVIDERS: PCP Family Medicine; Referring Provider Family Medicine; Visit Provider Family Medicine
DX: R73.03 Prediabetes (principal); M10.9 Gout, unspecified; I10 Essential (primary) hypertension; D51.8 Other vitamin B12 deficiency anemias; E53.8 Deficiency of other specified B group vitamins
CPT/HCPCS: 36415; 80053; 82607; 83036; 83540; 84443; 84550; 85025

== ENCOUNTER → 2025-06-03 09:56 | Outpatient (CLI) | payer OTHER, SELFPAY ==
--- NOTE | 2025-06-03 09:57 | DI.MG.S_ITS ---
MM screening mammo BI: 06/03/2025. BI-RADS: 1 CLINICAL: 49-year old female for bilateral screening mammogram. Tyrer-Cuzick lifetime risk of 6.4%. No personal or first-degree family history of breast cancer. PRIOR EXAMS: 09/04/2023, 07/15/2022, 03/17/2021, 03/07/2020, 12/13/2018. MAMMOGRAPHY TECHNIQUE: 2D and 3D (tomosynthesis) digital mammographic views obtained, with additional images as needed for full coverage. Current study was also evaluated with a Computer Aided Detection (CAD) system. DENSITY B. There are scattered areas of fibroglandular density. MAMMOGRAPHY FINDINGS Bilateral: No suspicious mass, asymmetry, microcalcification, or other abnormality seen. IMPRESSION: * No evidence of malignancy. RECOMMENDATIONS Bilateral * Annual screening mammography. OVERALL ASSESSMENT CATEGORY BI-RADS-1: Negative. The [employer] recommends annual screening mammography beginning at age 40 for women with average risk of breast cancer. ELECTRONICALLY SIGNED: Meenakshi Guy M.D. on 06/03/2025 at 04:28:36 PM PT Interpreting Station ID: [id number]
== END ==
LOC: MAMMO 09:56
PROVIDERS: PCP Family Medicine; Referring Provider Family Medicine; Visit Provider Family Medicine
DX: Z12.31 Encounter for screening mammogram for malignant neoplasm of breast (principal)
CPT/HCPCS: 77063; 77067